=== PATIENT | female | born 1995 | race Hispanic/Latino ===

== ENCOUNTER 2020-01-22 16:05 | Emergency (ER) | payer OTHER ==
[2020-01-22] MEDS ORDERED: Azithromycin 250 MG TAB ONE (17:12)
[2020-01-22] MEDS ORDERED: cefTRIAXone\\ROCEPHIN 250 MG VIAL ONE (17:12)
[2020-01-22] MEDS ORDERED: Lidocaine 1% PF 5 ML VIAL ONE (17:12)
[2020-01-22] MEDS ORDERED: Ondansetron ODT 4 MG TAB ONE (18:16)
[2020-01-23 11:22] LABS: SARS-CoV-2 MS2 Positive; SARS-CoV-2 N Gene Negative; SARS-CoV-2 S Gene Negative; SARS-CoV-2 orf1ab Negative
== END 2020-01-22 17:25 | disposition home or self-care (01) ==
LOC: ERS 16:05
DX: R10.13 Epigastric pain (principal); A74.9 Chlamydial infection, unspecified
CPT/HCPCS: 87635; 96372; 99284; J0696; J2001; Q0162; U0003

== ENCOUNTER 2020-07-08 02:52 | Emergency (ER) | payer MEDICAID, OTHER ==
[2020-07-08] MEDS ORDERED: Ondansetron PF 4 MG/2 ML Vial ONE (03:15)
[2020-07-08 03:34] LABS: Bacteria/HPF 2+ HPF (None Seen); Bilirubin 1+ (Negative); Blood, Urine Negative (Negative); Clarity Turbid (Clear); Glucose, Urine (Dipstick) Normal (Negative); Ketone, Urine Trace mg/dL (Negative); Leukocyte 250 Leu/uL (Negative); Mucous/LPF 4+ LPF (<2+); Nitrite 2+ (Negative); Protein, Urine (Dipstick) 50 mg/dL (Neg-Trace); RBC/HPF 0-3 HPF (0-3); WBC/HPF 21-50 HPF (0-3)
[2020-07-08 03:42] LABS: #Basophils 0.1 thou/uL (0.0-0.2); #Eosinphils 0.1 thou/uL (0.0-0.7); #Lymphocytes 1.6 thou/uL (1.20-3.40); #Monocytes 0.4 thou/uL (0.11-0.59); #Neutrophils 5.7 thou/uL (1.40-6.50); %Basophils 1.1 % (0.0-1.0); %Eosinophils 0.9 % (0.0-10.0); %Lymphocytes 20.5 % (21.0-51.0); %Monocytes 4.5 % (0.0-10.0); Hemoglobin 15.3 g/dL (12.0-16.0); Mean Corpuscular HGB CONC 33.7 g/dL (32.0-36.0); Mean Corpuscular Hemoglobin 29.4 pg (27.0-31.0); Mean Corpuscular Volume 87.3 fL (78.0-98.0); Mean Platelet Volume 7.2 fL (7.4-10.4); Platelet Count 343 thou/uL (130-400); White Blood Cell (WBC) Count 7.8 thou/uL (4.8-10.8)
[2020-07-08 04:02] LABS: BHCG - Serum Negative (NEGATIVE); Pregs Control Background? CLEAR/WHITE (CLR/WHITE); Pregs Control Bar Appear? YES (CONTROL BAR)
[2020-07-08 04:04] LABS: ALT (SGPT) 59 U/L (8-55); AST (SGOT) 135 U/L (5-34); Alkaline Phosphatase 86 U/L (40-110); Anion Gap 13 mmol/L (10-20); BUN (Urea Nitrogen) 8 mg/dL (7.0-18.7); Bilirubin, Total 1.5 mg/dL (0.2-1.2); Calc. Creatinine Clearance 0 mL/min (70-130); Calcium 9.4 mg/dL (7.8-10.44); Carbon Dioxide 27 mmol/L (22-29); Chloride 103 mmol/L (98-107); Estimated GFR-MDRD Greater than 90; Globulin 3.6 g/dL (2.4-3.5); Glucose 94 mg/dL (70-105); Lipase 17 U/L (8-78); Potassium 3.5 mmol/L (3.5-5.1); Protein, Total 7.6 g/dL (6.0-8.3); Sodium 139 mmol/L (136-145)
--- NOTE | 2020-07-08 08:05 | RAD ---
Exam: Chest one view Abdomen 2 views HISTORY: Evaluate gastric sleeve integrity. FINDINGS: Chest one view: Normal cardiac silhouette. Pulmonary vessels and pulmonary hilum are normal . Costophrenic angles are clear. No consolidation or mass. No pneumothorax or acute osseous abnormalities Abdomen 2 views: Nonspecific bowel gas pattern. No suspicious densities in the abdomen or pelvis. No differential air-fluid levels. No pneumoperitoneum. Epigastric suture chain is identified. IMPRESSION: 1. Acute cardiac pulmonary process 2. Nonspecific bowel gas pattern. Additional imaging if clinically warranted.
--- NOTE | 2020-07-08 08:51 | ULT ---
PRELIMINARY REPORT/[facility]/EMERGENCY AFTER HOURS PROCEDURE: EXAM: US Abdomen Limited, Right Upper Quadrant. CLINICAL HISTORY: Abd pain, mostly epigastric pain to RUQ, N/V TECHNIQUE: Real-time ultrasound of the right upper quadrant with image documentation. COMPARISON: None provided. FINDINGS: LIVER: Unremarkable. Measures 17.6 cm GALLBLADDER: Cholelithiasis is noted with a negative sonographic Osborn's sign. No wall thickening. No pericholecy stic fluid. COMMON BILE DUCT: Appears dilated at 8.4 mm. PANCREAS: Mostly obscured by overlying bowel gas. RIGHT KIDNEY: Unremarkable. No hydronephrosis. Measures 9.6 cm IMPRESSION: Cholelithiasis with no sonographic evidence for acute cholecystitis. Mild dilatation of the common b ile duct is noted ELECTRONICALLY SIGNED BY: Bo Coppola MD Jul 08, 2020 4:05:25 AM ENERGY CONSERVATION REPRESENTATIVE This report is intended for review by the ordering physician only, in accordance of law. If you recei ve this report in error, please call [facility] at [phone]. FINAL REPORT GALLBLADDER ULTRASOUND: Date: 07/08/2020 HISTORY: Right upper quadrant pain. FINDINGS: Real-time imaging of the right upper quadrant shows echogenic foci with shadowing within the gallblad thuan consistent with small stones. The common duct is in the 8.0 mm range. Visualized liver parenchyma shows no focal abnormalities. Pancreas is largely obscured. The right kidney is normal in size and nonobstructed. IMPRESSION: Multiple cholelithiasis with a mildly dilated common duct at 8.0 mm. Definite ductal calculus is not seen, but the duct was not seen in its entirety. Report in agreement with the preliminary report issued by [facility]. POS: [facility] [place]
[2020-07-08 14:07] LABS: SARS-CoV-2 MS2 Positive; SARS-CoV-2 N Gene Negative; SARS-CoV-2 S Gene Negative; SARS-CoV-2 by NAA Not Detected (NotDetected); SARS-CoV-2 orf1ab Negative
== END 2020-07-08 04:56 | disposition home or self-care (01) ==
LOC: ERS 02:52
DX: K80.50 Calculus of bile duct without cholangitis or cholecystitis without obstruction (principal); N39.0 Urinary tract infection, site not specified; R11.2 Nausea with vomiting, unspecified; Z20.828 Contact with and (suspected) exposure to other viral communicable diseases; Z79.899 Other long term (current) drug therapy
CPT/HCPCS: 74022; 76705; 80053; 81003; 81015; 83690; 84703; 85025; 87635; 96374; J2405; U0003

== ENCOUNTER 2020-07-11 08:34 | Day surgery (SDC) | payer OTHER ==
[2020-07-11 09:04] LABS: #Basophils 0.1 thou/uL (0.0-0.2); #Eosinphils 0.2 thou/uL (0.0-0.7); #Lymphocytes 2.7 thou/uL (1.20-3.40); #Monocytes 0.4 thou/uL (0.11-0.59); #Neutrophils 2.2 thou/uL (1.40-6.50); %Basophils 1.6 % (0.0-1.0); %Eosinophils 3.7 % (0.0-10.0); %Lymphocytes 48.5 % (21.0-51.0); %Monocytes 6.5 % (0.0-10.0); %Neutrophils 39.6 % (42.0-75.0); Hemoglobin 14.4 g/dL (12.0-16.0); Mean Corpuscular Hemoglobin 29.4 pg (27.0-31.0); Mean Corpuscular Volume 89.1 fL (78.0-98.0); Mean Platelet Volume 7.4 fL (7.4-10.4); Platelet Count 340 thou/uL (130-400); RBC Distribution Width 12.2 % (11.5-14.5); White Blood Cell (WBC) Count 5.5 thou/uL (4.8-10.8)
[2020-07-11 09:24] LABS: ALT (SGPT) 36 U/L (8-55); AST (SGOT) 24 U/L (5-34); Albumin 3.8 g/dL (3.5-5.0); Alkaline Phosphatase 97 U/L (40-110); Anion Gap 11 mmol/L (10-20); BUN (Urea Nitrogen) 8 mg/dL (7.0-18.7); Bilirubin, Total 0.6 mg/dL (0.2-1.2); Calc. Creatinine Clearance 0 mL/min (70-130); Calcium 9.2 mg/dL (7.8-10.44); Carbon Dioxide 28 mmol/L (22-29); Chloride 104 mmol/L (98-107); Estimated GFR-MDRD Greater than 90; Globulin 2.9 g/dL (2.4-3.5); Glucose 84 mg/dL (70-105); Potassium 3.9 mmol/L (3.5-5.1); Protein, Total 6.7 g/dL (6.0-8.3); Sodium 139 mmol/L (136-145)
[2020-07-11] MEDS ORDERED: Glycopyrrolate 0.2 MG/ML 5 ML SYRINGE ONE (10:38)
[2020-07-11] MEDS ORDERED: Rocuronium Bromide 10 MG/ML (10ML VIAL) ONE (10:38)
[2020-07-11] MEDS ORDERED: Dexamethasone 20 MG/5 ML VIAL ONE (10:38)
[2020-07-11] MEDS ORDERED: Lidocaine 1% PF 5 ML VIAL ONE (10:38)
[2020-07-11] MEDS ORDERED: PROPOFOL 200 MG/20 ML VIAL ONE (10:38)
[2020-07-11] MEDS ORDERED: Ondansetron PF 4 MG/2 ML Vial ONE (10:38)
[2020-07-11 11:32] LABS: Bilirubin Negative (Negative); Blood, Urine Large (Negative); Glucose, Urine (Dipstick) Negative (Negative); Ketone, Urine Negative (Negative); Leukocyte Negative (Negative); Nitrite Positive (Negative); Protein, Urine (Dipstick) Trace mg/dL (Neg-Trace)
[2020-07-11 11:39] LABS: Clarity Cloudy (Clear)
[2020-07-11 11:40] LABS: Bacteria/HPF 2+ HPF (None Seen); WBC/HPF 0-3 HPF (0-3)
[2020-07-11] MEDS ORDERED: Midazolam HCl 2 mg/2 ml Vial ONE ×2 (12:14→12:49)
[2020-07-11] MEDS ORDERED: Scopolamine 1.5 mg/72 hour Patch ONE (12:14)
[2020-07-11] MEDS ORDERED: cefOXitin Sodium/Dextrose 2 GM/50 ML BAG ONE (12:28)
[2020-07-11] MEDS ORDERED: ceFOXitin 1 GM VIAL ONE (12:28)
[2020-07-11] MEDS ORDERED: Fentanyl 100 MCG/2 ML VIAL ONE ×4 (12:49→14:57)
[2020-07-11] MEDS ORDERED: Lidocaine 2% Jelly 5 ML TUBE ONE (12:49)
[2020-07-11] MEDS ORDERED: Lidocaine 1% w/Epinephrine 1:100K 20 ML VIAL ONE (12:56)
[2020-07-11] MEDS ORDERED: Iothalamate Meglumine 60% 50 ML VIAL FS ONE (12:56)
[2020-07-11] MEDS ORDERED: Bupivacaine 0.25% HCL 30 ML VIAL ONE (12:56)
--- NOTE | 2020-07-11 14:08 | RAD ---
OPERATIVE CHOLANGIOGRAM: 07/11/20 HISTORY: Intraoperative film. This single film is presented for interpretation showing filling of a nondilated common bile duct wit h emptying into the duodenum. There is incomplete filling of the left intrahepatic bile ducts. IMPRESSION: Unremarkable operative cholangiogram. POS: [facility]
[2020-07-11] MEDS ORDERED: Meperidine HCl/PF 25 MG/ML VIAL ONE (14:20)
--- NOTE | 2020-07-11 15:07 | OP ---
DATE OF PROCEDURE: 07/11/2020 PREOPERATIVE DIAGNOSIS: Acute cholecystitis with elevated liver function test. POSTOPERATIVE DIAGNOSIS: Acute cholecystitis with elevated liver function test. PROCEDURE PERFORMED: Laparoscopic cholecystectomy with intraoperative cholangiogram. ANESTHESIA: General. ESTIMATED BLOOD LOSS: Minimal. COMPLICATIONS: None. SPECIMEN: Gallbladder. FINDINGS: Normal cholangiogram. DESCRIPTION OF PROCEDURE: The patient was taken to the operating room and laid supine on the operating room table. After general anesthetic was obtained, the abdomen was prepped and draped in a sterile fashion. Curved incision was made below the umbilicus. Cautery was dissected down to and score the fascia. Abdominal cavity was entered bluntly using a Eva clamp. Holding stitch of PDS was placed on each side of fascia. Jan trocar was placed. High-flow pneumoperitoneum was obtained. An upper midline 5 mm port and 2 right upper quadrant 5 mm ports were placed under direct visualization. The gallbladder was retracted from the gallbladder fossa. The peritoneum was opened anteriorly and posteriorly. The critical view triangle was seen showing only the cystic duct and cystic artery branching medial to lateral and no other branching structures. A clip was placed high on the cystic duct and a small ductotomy was made just proximal to that. A cholangiocatheter was brought in through a separate stab incision and placed in the cystic duct and a cholangiogram was performed, which showed good contrast flow into the duodenum without obstruction. Cholangiocatheter was removed and 2 clips were placed proximally and one distally and the cystic duct was cut using laparoscopic scissors. The cystic artery was taken using 2 clips proximally and one clip distally, cut using laparoscopic scissors. The gallbladder was retracted out of the gallbladder fossa using cautery, placed in an Endo Catch bag and brought out through the Jan. There was no bleeding or bile in the liver bed. The right upper quadrant was irrigated using sterile solution. All port sites were infiltrated using local anesthetic. All ports were removed under camera visualization. Pneumoperitoneum was let down. PDS was used to close the fascial defect below the umbilicus. All incisions were closed using 4-0 Monocryl and Dermabond. The patient was sent to Recovery in stable condition. All instrument counts, needle counts, and lap counts were correct. Job ID: [id number]
[2020-07-11] MEDS ORDERED: HYDROcodone/Acetaminophen 5/325 mg Tablet ONE (15:44)
== END 2020-07-11 15:45 | disposition home or self-care (01) ==
LOC: ERS 08:34 → SDC 11:15
PROVIDERS: ATTEND Surgery
PROC: 0FT44ZZ Resection of Gallbladder, Percutaneous Endoscopic Approach (ICD-10-PCS; principal; 2020-07-11)
PROC: BF121ZZ Fluoroscopy of Gallbladder using Low Osmolar Contrast (ICD-10-PCS; principal; 2020-07-11)
DX: K80.12 Calculus of gallbladder with acute and chronic cholecystitis without obstruction (principal); R94.5 Abnormal results of liver function studies; F17.290 Nicotine dependence, other tobacco product, uncomplicated
CPT/HCPCS: 36415; 47532; 80053; 81003; 81015; 85025; 88304; 94760; J0694; J1100; J2175; J2250; J2405; J2704; J3010; S0020